=== PATIENT | male | born 1965 | race Caucasian/White ===

== ENCOUNTER 2017-05-29 16:38 | Emergency (ER) | payer BC ==
[~2017-05-29] VITALS: Ht 189.2 cm; Wt 85.3 kg
--- OUTSIDE RECORDS SUMMARY | ~2017-05-29 | XMS | Clinical Summary ---
Demographics + + + | Address | [address] | | | [place] [address] | + + + | Home Phone | | + + + | Preferred Language | Unknown | + + + | Marital Status | Single | + + + | Caodaism Affiliation | Unknown | + + + | Race | Unknown | + + + | Ethnic Group | Other Race | + + + Author + + + | Author | [facility] | + + + | Organization | [facility] | + + + | Address | Unknown | + + + | Phone | Unavailable | + + + Care Team Providers + +------+ + | Care Founder And Chief Technical Officer Name | Role | Phone | + +------+ + PP | Unavailable | + +------+ + Source Comments ANGELI is fully live on both [facility] and [facility] Allergies Not on File Current Medications Not on file Active Problems Not on file Social History + +-------+ +--------+------+ | Tobacco Use | Types | Packs/Day | Years | Date | | | | | Used | | + +-------+ +--------+------+ | Never Assessed | | | | | + +-------+ +--------+------+ + + + | Sex Assigned at | Date Recorded | | | | + + + | Not on file | | + + + Plan of Treatment Not on file Results Not on filefrom Last 3 Months"
--- OUTSIDE RECORDS SUMMARY | ~2017-05-29 | XMS | Clinical Summary ---
Demographics + + + | Address | [address] | | | [place] [address] | + + + | Home Phone | | + + + | Preferred Language | Unknown | + + + | Marital Status | Single | + + + | Jew Affiliation | Unknown | + + + | Race | Unknown | + + + | Ethnic Group | Other Race | + + + Author + + + | Author | [facility] | + + + | Organization | [facility] | + + + | Address | Unknown | + + + | Phone | Unavailable | + + + Care Team Providers + +------+ + | Care Nurse Executive Name | Role | Phone | + +------+ + PP | Unavailable | + +------+ + Source Comments ANGELI is fully live on both [facility] and [facility]Patient.[facility] [place] Allergies Not on File Current Medications Not [...]
[~2017-05-29 16:38] MED LIST: ALLEGRA ALLERGY60 MG PO; CODITUSSIN AC473 ML PO; MELATONIN1 MG PO; OPTIFLEX-C400 MG PO; PSEUDOEPHEDRINE60 MG PO; SLEEP AID25 M1 PO
[2017-05-29] MEDS ORDERED: TAMIFLU75 MG PO (18:16)
== END 2017-05-29 18:32 | disposition home or self-care (01) ==
LOC: ED 16:38
DX: J11.1 Influenza due to unidentified influenza virus with other respiratory manifestations (principal); Z88.1 Allergy status to other antibiotic agents; Z79.899 Other long term (current) drug therapy
CPT/HCPCS: 87502; 99283

== ENCOUNTER 2021-01-02 07:20 | Day surgery (SDC) | payer BC ==
[~2021-01-02] VITALS: Ht 188 cm; Wt 89.1 kg
[~2021-01-02 07:20] MED LIST changes: +FLOVENT DISKUS50 MCG PO; +GLUCOSAMINE-CH1 EA13 PO; +TAMIFLU75 MG PO; +VENTOLIN HFA18 GM PO
[2021-01-02] MEDS ORDERED: ALLEGRA ALLERG180 MG PO (07:42)
--- NOTE | 2021-01-02 08:49 | NUR ---
PT IS ALERT, ORIENTED AND IN FOR ROUTINE SCOPE. PT HAS HAD PREVIOUS SCOPE, ALL QUESTIONS ASKED ANSWERED. PT REQUESTED PRAYER, WILL FOLLOW
--- NOTE | 2021-01-02 09:47 | NUR ---
01/02/21 0947 Griselda Porter 0915 PT ARRIVED IN PACU AWAKE WITH NO C/O'S. ABD SOFT. 0930 AT BEDSIDE. ALL QUESTIONS ANSWERED. 0940 SITTING AT SIDE OF BED SIPPING ON WATER. DC INSTRUCTIONS GIVEN.
--- NOTE | 2021-01-03 09:30 | OR ---
[facility] [address], [place] [address] Signed DATE OF OPERATION: 01/02/2021 SURGEON: Corina Adames MD PREOPERATIVE DIAGNOSIS: History of polyps 2017. POSTOPERATIVE DIAGNOSIS: Hyperplastic polyp of rectum (small and inflammatory polyp of sigmoid), excised. PROCEDURE: Total colonoscopy to cecum with cold morcellation polypectomy x2. ANESTHESIA: Intravenous sedation, fentanyl 100 mcg and Versed 7 mg. INDICATION: This 55-year-old white man is a patient of JUSTIN Cooper and known to me from the past having undergone colonoscopy in 2017 at which time he was found to have a tubulovillous adenoma of the cecum, tubular adenoma at the hepatic flexure, and hyperplastic polyps elsewhere. He is symptom free. He is admitted at this time to undergo colonoscopy for surveillance. He understands the risks of bleeding, infection, and perforation. FINDINGS: Prep was good. Complete colonoscopy was undertaken of the cecum without question. He had an inflammatory polyp of the sigmoid and a small hyperplastic polyp of the rectum, both were excised. DESCRIPTION OF PROCEDURE: The patient was brought to the endoscopy suite and placed in lateral decubitus position, given intravenous sedation to the point of slurred speech and nystagmus. Digital rectal examination was normal. An Olympus video colonoscope was passed in the rectum and manipulated throughout the colon ultimately intubating the cecum. The ileocecal valve and appendiceal orifice were normal. Irrigation was undertaken. The scope was carefully withdrawn and examination throughout showed no sign of abnormality until the sigmoid where a small inflammatory appearing polyp was noted, this was excised with cold morcellation technique. The scope was further withdrawn in the rectum, was a small hyperplastic appearing polyp, this was Electronically Signed By: CORINA ADAMES MD 01/03/21 0930 PATIENT NAME: WALT MILLER OPERATIVE REPORT DATE OF : 65 REPORT #: [id number] PHYSICIAN: CORINA ADAMES MD PCP: RONNA KIM REPORT IS CONFIDENTIAL AND NOT TO BE RELEASED WITHOUT AUTHORIZATION [facility] [address], [place] [address] Signed excised as well. Retroflexed view was otherwise normal. The scope was removed and the patient was taken to the recovery room in good condition. CONCLUDING DIAGNOSIS: Small polyps x2. PLAN: Recommend a repeat colonoscopy in 5 years sooner if clinically indicated. He will return to the ongoing care of Ronna Kim. MD CHAPO Chin/LOI /[id number] cc: JUSTIN Cooper Copies: RONNA KIM ~ Electronically Signed By: CORINA ADAMES MD 01/03/21 0930 PATIENT NAME: WALT MILLER OPERATIVE REPORT DATE OF : 65 REPORT #: [id number] PHYSICIAN: CORINA ADAMES MD PCP: RONNA KIM REPORT IS CONFIDENTIAL AND NOT TO BE RELEASED WITHOUT AUTHORIZATION
== END 2021-01-02 09:50 | disposition home or self-care (01) ==
LOC: OPS 07:20 → DS 07:20 → OPS 08:30 → DS 08:30 → OPS 09:50
PROVIDERS: ATTEND Surgery
PROC: 0DBN8ZX Excision of Sigmoid Colon, Via Natural or Artificial Opening Endoscopic, Diagnostic (ICD-10-PCS; 2021-01-02)
PROC: 0DBP8ZX Excision of Rectum, Via Natural or Artificial Opening Endoscopic, Diagnostic (ICD-10-PCS; principal; 2021-01-02 08:30)
DX: K62.1 Rectal polyp (principal); K63.5 Polyp of colon; Z88.8 Allergy status to other drugs, medicaments and biological substances; Z98.890 Other specified postprocedural states
CPT/HCPCS: 99153; G0500; J2250; J3010; J7121

== ENCOUNTER 2023-03-05 13:38 | Emergency (ER) | payer BC ==
[~2023-03-05] VITALS: Ht 188 cm; Wt 91.2 kg
[~2023-03-05 13:38] MED LIST changes: +ALLEGRA ALLERG180 MG PO; +FLUTICASONE PRO16 GM NAS; +SUDAFED SINUS1 EACH PO; +UNISOM SLEEP AI25 MG PO
[2023-03-05 14:35] LABS: BASOPHILS 0.6 % (0-2); EOSINOPHILS 2.2 % (0-6); HEMATOCRIT 45.4 % (35.0-50.0); HEMOGLOBIN 15.7 g/dL (12.0-18.0); LYMPHOCYTES 14.9 % (24-44); MCH 31.8 (27-36); MCHC 34.5 g/dl (30-36); MCV 92.3 fl (81-99); MONOCYTES 7.3 % (0-12); PLATELET COUNT 197 K/uL (140-440); RBC 4.92 M/ul (4.3-5.7); RDW 12.8 (10.5-15.0)
[2023-03-05 14:36] LABS: BILIRUBIN, URINE NEGATIVE (negative); BLOOD/HGB, URINE NEGATIVE (Negative); KETONE, URINE NEGATIVE (Negative); LEUK ESTERASE, URINE NEGATIVE (negative); NITRITE, URINE NEGATIVE (negative); PH, URINE 6.5 (5-7)
[2023-03-05 14:50] LABS: ALBUMIN/GLOBULIN RATIO 1.14 (1.1-2.4); ANION GAP 10.6 (7-21); BILIRUBIN, TOTAL 0.6 ng/dL (0.2-1.0); BUN/CREATININE RATIO 8.33 (6.0-28.6); CALCIUM 8.6 mg/dL (8.5-10.1); CREATININE, SERUM 0.96 mg/dL (0.70-1.30); POTASSIUM 3.6 mmol/L (3.5-5.1); PROTEIN, TOTAL 7.5 g/dL (6.4-8.2)
[2023-03-05] MEDS ORDERED: AMOX TR-K CLV1 EAC1 PO (15:13)
[2023-03-05] MEDS ORDERED: METRONIDAZOLE500 MG PO (15:13)
[2023-03-05 16:09] VITALS: BP 150/95
== END 2023-03-05 16:11 | disposition home or self-care (01) ==
LOC: ED 13:38
PROVIDERS: Emergency Medicine
DX: K57.32 Diverticulitis of large intestine without perforation or abscess without bleeding (principal); Z88.1 Allergy status to other antibiotic agents; Z79.899 Other long term (current) drug therapy
CPT/HCPCS: 36415; 74177; 80053; 81003; 83690; 85025; 99284-25; J1885; J7030; Q9967